=== PATIENT | male | born 1980 | race Caucasian/White ===

== ENCOUNTER 2022-04-06 01:04 | Emergency (ER) | payer OTHER, SELFPAY ==
[2022-04-06] MEDS ORDERED: Amoxicillin/Potassium Clav 875 MG TAB ONE (02:03)
[2022-04-06] MEDS ORDERED: Ketorolac Tromethamine 30 MG/ML VIAL ONE (02:03)
== END 2022-04-06 02:18 | disposition home or self-care (01) ==
LOC: CSHERS 01:04
DX: K02.9 Dental caries, unspecified (principal); F17.210 Nicotine dependence, cigarettes, uncomplicated
CPT/HCPCS: 96372; 99282; J1885